=== PATIENT | male | born 1985 | race Two or more races ===

== ENCOUNTER 2019-10-18 22:14 | Emergency (ER) | payer SELFPAY ==
[~2019-10-18] VITALS: Ht 182.9 cm; Wt 90.7 kg
[2019-10-18 22:14] VITALS: BP 129/81
--- NOTE | 2019-10-18 22:30 | NUR ---
HAYES SEVILLA AT BEDSIDE
--- NOTE | 2019-10-18 22:36 | NUR ---
Patient discharged to home in stable condition. Written and verbal after care instructions given. Patient verbalizes understanding of instruction.
== END 2019-10-18 22:37 | disposition home or self-care (01) ==
LOC: ER 22:18
DX: T16.1XXA Foreign body in right ear, initial encounter (principal); W45.8XXA Other foreign body or object entering through skin, initial encounter; Y93.89 Activity, other specified; Y92.89 Other specified places as the place of occurrence of the external cause; Y99.8 Other external cause status